=== PATIENT | male | born 1940 | race Caucasian/White ===

== ENCOUNTER 2017-09-16 11:01 | Inpatient (IN) | payer BC ==
[~2017-09-16] VITALS: Ht 177.8 cm; Wt 104.8 kg
[2017-09-16 11:14] VITALS: BP 165/71
[2017-09-16] MEDS ORDERED: BENAZEPRIL HCL40 MG PO (11:27)
[2017-09-16] MEDS ORDERED: TRICOR145 MG PO (11:27)
[2017-09-16] MEDS ORDERED: ATORVASTATIN CA40 MG PO (11:27)
[2017-09-16] MEDS ORDERED: NITROGLYCERIN0.4 MG SUBLING (11:28)
[2017-09-16] MEDS ORDERED: LASIX 40 MG TAB40 M2 PO (11:28)
[2017-09-16] MEDS ORDERED: HYDRALAZINE 2525 MG PO (11:28)
[2017-09-16] MEDS ORDERED: SORINE 80 MG TA80 M1 PO (11:29)
[2017-09-16] MEDS ORDERED: ALDACTONE25 MG PO (11:29)
[2017-09-16] MEDS ORDERED: KLOR-CON 1010 MEQ PO (11:29)
[2017-09-16] MEDS ORDERED: ASPIR 8181 MG PO (11:30)
[2017-09-16] MEDS ORDERED: AMLODIPINE BESY10 MG PO (11:30)
[2017-09-16] MEDS ORDERED: ELIQUIS5 MG PO (11:30)
[2017-09-16 12:41] LABS: URINE BILIRUBIN NEGATIVE (Negative); URINE BLOOD NEGATIVE (Negative); URINE CLARITY CLEAR; URINE COLOR YELLOW; URINE GLUCOSE-RANDOM NEGATIVE (Negative); URINE KETONES NEGATIVE (Negative); URINE LEUKOCYTES-REFLEX NEGATIVE (Negative); URINE NITRITE-REFLEX NEGATIVE (Negative); URINE PROTEIN NEGATIVE (Negative); URINE UROBILINOGEN 0.2 E.U./dl (0.2-1.0)
[2017-09-16 12:43] LABS: ABSOLUTE EOSINOPHILS 0.2 thou/uL (0.0-0.7); ABSOLUTE LYMPHOCYTES 1.3 thou/uL (0.8-5.3); ABSOLUTE MONOCYTES 0.9 thou/uL (0.0-1.2); ABSOLUTE NEUTROPHILS 4.4 thou/uL (1.6-8.1); BASOPHILS 0.5 %; HEMATOCRIT 50.9 % (42.0-52.0); HEMOGLOBIN 16.8 gm/dL (14.0-18.0); LYMPHOCYTES 18.7 %; MCH 29.5 pg (26.0-34.0); MCV 89.5 fL (80.0-100.0); MONOCYTES 13.3 %; MPV 10.5 fl. (7.2-11.1); NUCLEATED RBCS 0 /100WBC; PLATELET COUNT* 184 thou/uL (150-400); POLYS 64.5 %; RBC 5.69 mil/uL (4.50-6.00); WBC 6.8 thou/uL (4.0-11.0)
[2017-09-16 12:47] LABS: ANION GAP 8 mmol/L (7-16); BUN 32 mg/dL (7-18); CALCIUM 9.6 mg/dL (8.5-10.1); CHLORIDE 103 mmol/L (98-107); CO2 27 mmol/L (21-32); CREATININE 1.4 mg/dL (0.6-1.3); GLUCOSE 106 mg/dL (70-99); POTASSIUM 4.4 mmol/L (3.5-5.1); SODIUM 138 mmol/L (136-145)
[2017-09-16 12:55] LABS: ALBUMIN 4.2 g/dL (3.4-5.0); ALKALINE PHOSPHATASE 45 U/L (46-116); SGOT 24 U/L (15-37); SGPT 39 U/L (30-65); TOTAL BILIRUBIN 0.5 mg/dL (<0.1-1.0); TROPONIN-I LEVEL <0.06 ng/mL (<0.06)
--- NOTE | 2017-09-16 15:07 | EKG ---
[place] [address] ELECTROCARDIOGRAM REPORT Name: YELENA PAREDES Room: [facility].#: [id number] Admission: 09/16/17 Attend Phys: Discharge: Date of : 40 Report #: [id number] THIS REPORT FOR: //name// [facility] [place] ED Test Date: 2017-09-16 Test Time: 11:14:06 Pat Name: YELENA PAREDES Department: Room: Gender: Superintendent Stations: Claus MULLIGAN : 1940 Requested By: Chastity Smtih Order Number: [id number] Brooke MD: Gonzalez Georges Measurements Intervals [place] Rate: 56 P: -2 ID: [id number] QRS: -6 QRSD: 92 T: -1 QT: 454 QTc: 439 Interpretive Statements Sinus rhythm No previous ECG available for comparison Electronically Signed On 09-16-2017 15:07:33 CDT by Gonzalez Georges [email or web address] <ELECTRONICALLY SIGNED> By: Gonzalez Georges MD, [facility] 09/16/17 1507 1114 1114 Gonzalez Georges MD, FACC /EPI
[2017-09-16 16:15] VITALS: BP 162/80
[2017-09-16 16:15] LABS: URINE POTASSIUM-RANDOM 37.9 mmol/L
[2017-09-16 16:16] VITALS: BP 185/87
--- NOTE | 2017-09-16 18:52 | NUR ---
RECEIVED REPORT FROM GUILHERME IN ER. PT TRANSFERED TO [facility] FLOOR AROUND 1615. PT A&O X4, VSS, O2 SAT 97% ON RA. PT ORIENTED TO ROOM, BED AND CALL LIGHT. LICENSED CLUB MANAGER PLACED TRACING SB, HR 46. ASYMPTOMATIC. BEDSIDE SWALLOW PERFORMED - NEGATIVE. FULL NIH COMPLETED, SCORE OF 1 FOR MINOR FACIAL DROOP WHICH COULD BE RELATED TO PT HAVING STITCHES AROUND LEFT NARE FROM RECENT SKIN CANCER REMOVAL. PT DOES REPORT TINGLING ALL OVER HIS BODY. DENIES CHEST PAIN. PT ABLE TO EAT DINNER WITHOUT ISSUE. IV INTACT TO LEFT AC AND IVF INFUSING. AT BEDSIDE FOR A WHILE AND HAS SINCE LEFT. ECHO AND U/S CAROTIDS COMPLETED. PT UP WITH STANDBY ASSIST TO BATHROOM, VOIDING WITHOUT ISSUE. PT LEFT RESTING IN BED. CALL LIGHT IS WITHIN REACH, FALL PRECAUTIONS ARE IN PLACE. HOURLY ROUNDING PERFORMED.
[2017-09-16 20:00] VITALS: BP 121/62
[2017-09-17 00:18] VITALS: BP 134/97
[2017-09-17 03:55] VITALS: BP 113/65
[2017-09-17 05:01] LABS: HEMATOCRIT 44.7 % (42.0-52.0); HEMOGLOBIN 14.9 gm/dL (14.0-18.0); MCH 29.2 pg (26.0-34.0); MCHC 33.4 g/dL (28.0-37.0); MCV 87.5 fL (80.0-100.0); MPV 10.3 fl. (7.2-11.1); RBC 5.1 mil/uL (4.50-6.00); RDW-CV 13.8 % (10.5-14.5); WBC 5.7 thou/uL (4.0-11.0)
[2017-09-17 05:05] LABS: CHOLESTEROL 136 mg/dL (<200); HDL CHOLESTEROL 29 mg/dL (>40); LDL CHOLESTEROL 71 mg/dL (<100); TC:HDL 4.7 Ratio (Not establshd); TRIGLYCERIDE 184 mg/dL (<150); VLDL 37 mg/dL (<40)
[2017-09-17 05:06] LABS: SERUM ASSESSMENT Clear
--- NOTE | 2017-09-17 05:28 | NUR ---
PT CARE ASSUMED AFTER REPORT. ASSESSMENT COMPLETE. SB ON MONITOR. IVF INFUSING. FALL PRECAUTIONS IN PLACE INCLUDING BED ALARM. NPO FOR CARDIOLOGY CONSULT. CALL LIGHT IN REACH. BED IN LOWEST POSITION. PROGRESSING TOWARDS GOALS.
[2017-09-17 05:33] LABS: CREATININE 1.2 mg/dL (0.6-1.3); POTASSIUM 4.2 mmol/L (3.5-5.1)
[2017-09-17 08:00] VITALS: BP 137/65
--- NOTE | 2017-09-17 08:33 | 2DMMODE ---
[place] [address] 2 D/M-MODE ECHOCARDIOGRAM Name: YELENA PAREDES Room: [address] IN [facility]#: [id number] Admission: 09/16/17 Attend Phys: Neeraj Seals, Discharge: Date of : 40 Date of Service: 09/17/17 0832 Report #: [id number] THIS REPORT FOR: //name// APPROVED REPORT Study performed: 09/16/2017 16:27:16 EXAM: Comprehensive 2D, Doppler, and color-flow Echocardiogram Patient Location: In-Patient Room #: [facility] Status: routine BSA: 2.20 HR: 52 bpm BP: 162/80 mmHg Rhythm: NSR Other Information Study Quality: Good Indications CVA/TIA Echo Enhancing Agent Indication: Rule out Shunt Agent(s) / Amount(s) Used: Agitated Saline 10 cc 2D Dimensions LVEF(%): 76.23 (>50%) IVSd: 15.63 (7-11mm) LVOT Diam: 21.89 (18-24mm) LVDd: 53.09 mm PWd: 14.28 (7-11mm) Ascending Ao: 33.57 (22-36mm) LVDs: 29.03 (25-40mm) Aortic Root: 34.58 mm Lopez's LVEF: 76.23 % Volumes Left Atrial Volume (Systole) LA ESV Index: 39.30 mL/m2 Aortic Valve AoV Peak Ganesh.: 1.56 m/s AO Peak Gr.: 9.71 mmHg LVOT Max P.06 mmHg AO Mean Gr.: 5.02 mmHg LVOT Mean P.55 mmHg LVOT Max V: 1.01 m/s AO V2 VTI: 29.91 cm LVOT Mean V: 0.56 m/[place] [address] 2 D/M-MODE ECHOCARDIOGRAM Name: YELENA PAREDES Room: [address] IN .R.#: [id number] Admission: 09/16/17 Attend Phys: Neeraj Seals, Discharge: Date of : 40 Date of Service: 09/17/17 0832 Report #: [id number] ALAN (VTI): 3.21 cm2 LVOT V1 VTI: 25.52 cm Mitral Valve E/A Ratio: 0.70 MV Decel. Time: 368.33 ms MV E Max Ganesh.: 0.56 m/s MV PHT: 106.82 ms MVA (PHT): 2.06 cm2 TDI E/Lateral E': 5.60 E/Medial E': 7.00 Medial E' Ganesh.: 0.08 m/s Lateral E' Ganesh.: 0.10 m/s Pulmonary Valve PV Peak Ganesh.: 1.08 m/s PV Peak Gr.: 4.68 mmHg Left Ventricle The left ventricle is normal size. There is normal LV segmental wall motion. Moderate concentric left ventricular hypertrophy. Left ventricular systolic function is normal. LVEF is 60-65%. Grade I - abnormal relaxation pattern. Right Ventricle The right ventricle is normal size. The right ventricular systolic function is normal. Atria Left atrium is moderately dilated. Interatrial septum is intact without evidence of ASD or PFO. Right atrium is mildly dilated. Aortic Valve Mild aortic valve sclerosis. No aortic regurgitation is present. There is no aortic valvular stenosis. Mitral Valve The mitral valve is normal in structure. Trace mitral regurgitation. No evidence of mitral valve stenosis. Tricuspid Valve The tricuspid valve is normal in structure. Unable to assess PA pressure. Trace tricuspid regurgitation. Pulmonic Valve The pulmonary valve is normal in structure. [place] [address] 2 D/M-MODE ECHOCARDIOGRAM Name: YELENA PAREDES Room: [address] [place] .#: [id number] Admission: 09/16/17 Attend Phys: Neeraj Seals, Discharge: Date of : 40 Date of Service: 09/17/17 0832 Report #: [id number] valvular regurgitation. Great Vessels The aortic root is normal in size. IVC is not visualized. Pericardium There is no pericardial effusion. <Conclusion> The left ventricle is normal size. Moderate concentric left ventricular hypertrophy. Left ventricular systolic function is normal. LVEF is 60-65%. Grade I - abnormal relaxation pattern. Left atrium is moderately dilated. Right atrium is mildly dilated. Mild aortic valve sclerosis. Interatrial septum is intact without evidence of ASD or PFO. <ELECTRONICALLY SIGNED> By: Gonzalez Georges MD, [facility] 09/17/17831 1 1 Gonzalez Georges MD, FACC /INF
[2017-09-17 12:57] VITALS: BP 112/68
[2017-09-17 16:00] VITALS: BP 145/66; BP 146/71; BP 151/79
--- NOTE | 2017-09-17 16:32 | NUR ---
RECEIVED REPORT FROM JUDD REYNOLDS. ASSUMED CARE OF PT AROUND 0730. PT A&O X4, PLEASANT. VSS. O2 SAT 94% ON RA. SQL DATA ARCHITECT IN PLACE TRACING SB. PT ASYMPTOMATIC WITH BRADYCARDIA. AM ASSESSMENT AND VITALS COMPLETED CHARTED. NIH'S COMPLETED Q4HRS - ALL HAVE BEEN A SCORE OF 1 THIS SHIFT FOR MILD FACIAL DROOP ON THE RIGHT. PT STILL REPORTS SLIGHT TINGLING IN HANDS. PT SEEN BY CARDIOLOGY THIS AM AND THEY HAVE SIGNED OFF. PT COMPLETED RENAL U/S THIS AM. PT SEEN BY NEUROLOGY THIS AM - TO HAVE MRI/MRA TOMORROW AM. IV TO LEFT AC INFILTRATED AND WAS REMOVED. PT REFUSED WARM COMPRESS. NEW IV TO LEFT WRIST INTACT AND INFUSING IVF. FAMILY AT BEDSIDE VISITING. PT WORKED WITH OT THIS AFTERNOON. PT UP WITH GWEN ASSIST TO THE BATHROOM, VOIDING WITHOUT ISSUE. PT WALKED THE HALLS THIS AFTERNOON WITH . PT CURRENTLY VISITING IN BED WITH FAMILY. CALL LIGHT IS WITHIN REACH. LOW FALL RISK PRECAUTIONS ARE IN PLACE. HORULY ROUNDING PERFORMED. WCTM FOR DURATION OF SHIFT.
[2017-09-17 18:08] LABS: GLYCOHEMOGLOBIN (HGB A1C) 5.6 % (4.8-5.6)
--- NOTE | 2017-09-17 18:19 | NUR ---
VSS. PT REMAINS A&O X4. O2 SAT >90% ON RA. NIH'S STILL 1. PT WENT DOWNSTAIRS FOR MRI/MRA AROUND 1800 - STILL DOWNSTAIRS. AT BEDSIDE WAITING FOR PT TO RETURN. PT HOPEFUL TO GO HOME TOMORROW.
[2017-09-17 20:10] VITALS: BP 128/61
[2017-09-18] VITALS: BP 114/59
[2017-09-18 04:00] VITALS: BP 134/74
--- NOTE | 2017-09-18 04:57 | NUR ---
PT SLEPT AT INTERVALS DURING THE NIGHT, PLEASANT, UP SBA TO THE BATHROOM, IV SALINE LOCKED, CALL LIGHT IN REACH, WILL CONTINUE TO MONITOR
[2017-09-18 08:00] VITALS: BP 147/66
[2017-09-18] MEDS ORDERED: B12INJ SUBQ (09:09)
[2017-09-18 09:39] VITALS: BP 147/66
--- NOTE | 2017-09-18 10:13 | CON ---
[address] [address] CONSULTATION Name: YELENA PAREDES Room: [address] IN M.R.#: [id number] Admission: 09/16/17 Attend Phys: Neeraj Seals MD Discharge: Date of : 40 Report #: [id number] THIS REPORT FOR: //name// CC: Doe Dia MD [facility]ENTER[facility]illermo Mcdonald MD TYPE OF REPORT: Cardiology consultation. INDICATION: Hypertensive emergency. HISTORY OF PRESENT ILLNESS: The patient is a 77-year-old white male with a remote history of coronary artery disease with percutaneous coronary intervention. He also has a history of paroxysmal atrial fibrillation and is on antiarrhythmic therapy and anticoagulation for this. He has had no recent recurrence of atrial fibrillation. Cardiac risk factors include hypertension and hyperlipidemia. The patient was seen in the Emergency Room with complaints of elevated blood pressure. He reports a systolic pressure being as high as 230. He is on multiple medications for hypertension. Blood pressure in the Emergency Room was 165/71. The patient is not having any angina. He is not having any symptoms to suggest heart failure. CT scan of his head was unremarkable. EKG on arrival showed sinus bradycardia without significant ST or T-wave abnormalities. At the time of my interview, he has multiple chronic complaints, but no acute problems. PAST MEDICAL HISTORY: 1. Coronary artery disease with remote percutaneous coronary intervention. 2. Hypertension. 3. Hyperlipidemia. 4. Paroxysmal atrial fibrillation. 5. Chronic anticoagulation without bleeding. 6. History of skin cancers removed from the face remotely and then 1 week ago. PAST SURGICAL HISTORY: 1. Hemorrhoidectomy. 2. Varicose vein surgery. 3. Hernia repair. ALLERGIES: PENICILLIN. CURRENT MEDICATIONS: Amlodipine 10 mg daily, Eliquis 5 mg b.i.d., aspirin 81 mg daily, atorvastatin 40 mg daily, Lotensin 40 mg b.i.d., TriCor 145 mg daily, furosemide 40 mg orally daily, hydralazine 25 mg b.i.d., Nitrostat p.r.n., potassium chloride 10 mEq daily, sotalol 160 mg b.i.d. and spironolactone [address] [place] [address] CONSULTATION Name: YELENA PAREDES Room: [address]#: [id number] Admission: 09/16/17 Attend Phys: Neeraj Seals MD Discharge: Date of : 40 Report #: [id number]. SOCIAL HISTORY: The patient quit smoking remotely. He does not smoke currently. He has been 58 years. He does not drink alcohol. FAMILY HISTORY: Noncontributory. PHYSICAL EXAMINATION: VITAL SIGNS: Presently stable. Blood pressure 137/65, pulse is 51 and regular. GENERAL: This is an elderly gentleman who is in no distress. Mood and affect appropriate. HEENT: Extraocular muscles intact. Mucous membranes are moist. The patient has a healing scar noted in the right nasolabial fold. NECK: Shows no jugular venous distention. There are no carotid bruits. CHEST: Reveals clear lung rodriges without wheezes or rales. CARDIOVASCULAR: Reveals a regular rhythm with a grade 1/6 systolic ejection murmur. I do not appreciate a gallop. ABDOMEN: Reveals normal bowel sounds. The abdomen is soft and nontender. EXTREMITIES: Shows no edema. Peripheral pulses are palpable. SKIN: Warm and dry. LABORATORY DATA: Reviewed. Electrolytes are within normal limits. BUN 25, creatinine 1.2 down from 1.4 yesterday and serum glucose 99. LFTs are within normal limits. Troponin is less than 0.06 on 3 separate occasions. Fasting lipid profile shows total cholesterol 136, triglycerides 184, HDL 29 and LDL 71. CBC shows a white blood cell count of 5.7; hemoglobin 14.9 and platelet count of 157,000. RADIOLOGICAL DATA: Carotid Doppler study showed mild bilateral plaquing without hemodynamically significant stenoses. Chest x-ray shows no acute process. CT of the head shows chronic age-related changes with no acute intracranial process identified. Echocardiogram today shows moderate LVH, normal left ventricular systolic function, grade 1 diastolic dysfunction, moderate left atrial enlargement, mild right atrial enlargement, mild aortic valvular sclerosis and no evidence of PFO or ASD. IMPRESSION AND RECOMMENDATIONS: 1. Hypertensive urgency, presently stable. His blood pressure appears to be adequately controlled on home regimen at this time. Etiology for the spike in his blood pressure is not clear at this point in time. We would follow clinically. 2. Coronary artery disease, presently stable. He is not having any symptoms to suggest angina. Troponins were negative x 3 sets. 3. Chronic diastolic heart failure, presently appears well compensated. No [address] [address] CONSULTATION Name: YELENA PAREDES Room: [address] IN M.R.#: [id number] Admission: 09/16/17 Attend Phys: Neeraj Seals MD Discharge: Date of : 40 Report #: [id number] change in medications at this time. 4. Paroxysmal atrial fibrillation. The patient is maintaining sinus rhythm. Continue sotalol at current dose. Continue Eliquis at current dose. 5. Chronic anticoagulation, stable. The patient is not having any bleeding problems. 6. Hyperlipidemia. The patient is at goal on current regimen. We would continue as outlined above. At this point in time, the patient appears stable from a cardiac standpoint. We will follow as needed. <ELECTRONICALLY SIGNED> By: Gonzalez Georges MD, FACC 09/18/17 1013 0930 0022[facility] Centerarmin Georges MD, FACC /nt
--- NOTE | 2017-09-18 10:18 | NUR ---
PT UNDERSTANDS ALL FOLLOW UP ORDERS. TELE AND IV DISCONTINUES.
[2017-09-19 16:08] LABS: UREA NITROGEN-RANDM URINE 290 mg/dL (Not Estab.)
--- NOTE | 2017-09-20 22:15 | CON ---
[address] [address] CONSULTATION Name: YELENA PAREDES Room: [address] IN M.R.#: [id number] Admission: 09/16/17 Attend Phys: Neeraj Seals MD Discharge: 09/18/17 Date of : 40 Report #: [id number] THIS REPORT FOR: //name// CC: Star Mcdonald DATE OF SERVICE: 09/17/2017 HISTORY OF PRESENT ILLNESS: A 77-year-old male patient who was evaluated by me for possibility of TIA. This patient indicates that he has been sick for some time, but he noticed that his blood pressure was pretty high. He was not feeling well. He laid down on the sofa and then he was incoordinated. He also had some dizziness associated with it. His symptoms were severe. They have become better, but they have not fully resolved. REVIEW OF SYSTEMS: Indicate some left chest pain. He had recently a cancer removed from the skin. He had a recent cataract surgery. He had some nonspecific paraesthesia. He has a history of cardiac stents. He has a history of atrial fibrillation. He has a history of dyslipidemia. He is on anticoagulation. He is also on medication for the hypertension. He is hard of hearing. This was his relevant 14-point review of system and he indicates that he is not having any new eye, ENT, GI, , musculoskeletal, constitutional, dermatological, hematological, psychiatric, throat, allergic symptom associated with present symptomatology. His 14-point review of system was otherwise unremarkable. PAST MEDICAL HISTORY: Negative for any stroke. FAMILY HISTORY: Negative for early age stroke. SOCIAL HISTORY: He is . His was there and I also talked to her. PHYSICAL EXAMINATION: Indicate that he is alert. He is responsive. He can follow simple commands. He is oriented. His speech, concentration, fund of knowledge and memory is at his baseline. Cranial nerve examination 2-12 is unremarkable. His strength, sensation, reflexes and tones are symmetrical. He has no cerebellar sign. There is no carotid bruit. There is no papilledema. He is moderately built individual, does not have any dysmorphic features of eyes, ears and face. His hearing is somewhat impaired. His vision is adequate. His pulses are difficult to feel. He does not have any edema, cyanosis or jaundice. His heart appeared to be irregular. He has no respiratory difficulty or rhonchi. His blood pressure is 137/65, respirations 17, pulse is 51, temperature is 98.1. [place] [address] CONSULTATION Name: YELENA PAREDES Room: [address] IN [facility]#: [id number] Admission: 09/16/17 Attend Phys: Neeraj Seals MD Discharge: 09/18/17 Date of : 40 Report #: [id number] LABORATORY DATA: His white count is 5.7. Sodium is 140. CT showed old changes, but no acute changes. IMPRESSION: It is possible that the patient's symptoms were secondary to his hypertension, but the possibility of transient ischemic need to be excluded. He is already anticoagulated because of his atrial fibrillation and it may or may not needs change in any treatment, but I think we need to do further workup. I discussed that aspect with the patient and he wants to do the further workup and we will try to schedule that in this patient. I discussed all of it with the patient and the patient is agreeable with this plan. <ELECTRONICALLY SIGNED> By: Festus Meza MD 09/20/17 2215 1217 [id number] Meza MD /nt
== END 2017-09-18 10:33 | disposition home or self-care (01) | DRG 683 ==
LOC: M.ERS 11:01 → M.2W 15:33 → M.TBA-ER 15:33 → M.2W 16:20
PROVIDERS: Personal Emergency Response Attendant; ADMIT Internal Medicine
DX: N17.9 Acute kidney failure, unspecified (principal); I16.1 Hypertensive emergency; I50.32 Chronic diastolic (congestive) heart failure; K90.9 Intestinal malabsorption, unspecified; I12.9 Hypertensive chronic kidney disease with stage 1 through stage 4 chronic kidney disease, or unspecified chronic kidney disease; N18.3 Chronic kidney disease, stage 3 (moderate); R27.0 Ataxia, unspecified; I25.10 Atherosclerotic heart disease of native coronary artery without angina pectoris; E78.5 Hyperlipidemia, unspecified; I48.0 Paroxysmal atrial fibrillation; K52.9 Noninfective gastroenteritis and colitis, unspecified; E86.9 Volume depletion, unspecified; I65.23 Occlusion and stenosis of bilateral carotid arteries; E11.51 Type 2 diabetes mellitus with diabetic peripheral angiopathy without gangrene; E53.8 Deficiency of other specified B group vitamins; Z79.01 Long term (current) use of anticoagulants; Z95.5 Presence of coronary angioplasty implant and graft; Z87.891 Personal history of nicotine dependence; Z88.0 Allergy status to penicillin; Z86.73 Personal history of transient ischemic attack (TIA), and cerebral infarction without residual deficits

== ENCOUNTER → 2018-05-03 | Outpatient (CLI) | payer BC ==
[~2018-05-03] MED LIST: ALDACTONE25 MG PO; AMLODIPINE BESY10 MG PO; ASPIR 8181 MG PO; ATORVASTATIN CA40 MG PO; B12INJ SUBQ; BENAZEPRIL HCL40 MG PO; ELIQUIS5 MG PO; HYDRALAZINE 2525 MG PO; KLOR-CON 1010 MEQ PO; LASIX 40 MG TAB40 M2 PO; NITROGLYCERIN0.4 MG SUBLING; SORINE 80 MG TA80 M1 PO; TRICOR145 MG PO
[2018-05-03 13:10] LABS: CALCIUM 10.1 mg/dL (8.5-10.1); CREATININE 1.5 mg/dL (0.6-1.3); POTASSIUM 4.7 mmol/L (3.5-5.1)
== END ==
LOC: M.LAB 12:43
PROVIDERS: Internal Medicine Cardiovascular Disease
DX: I48.91 Unspecified atrial fibrillation (principal)